=== PATIENT | male | born 1960 | race Caucasian/White ===

== ENCOUNTER 2019-06-07 07:23 | Inpatient (IN) ==
[2019-06-07 08:07] LABS: BASO# 0.01 X1000 (0.0-0.2); BASO% 0.1 % (0.0-0.8); EOS# 0.07 X1000 (0.0-0.7); EOS% 0.6 % (0.0-10.0); HEMATOCRIT 36.2 % (42.0-52.0); HEMOGLOBIN 11.9 g/dL (14.0-18.0); IMM GRAN# 0.25 X1000 (0.0-0.04); IMM GRAN% 2.1 % (0.0-0.5); LYMPH# 0.79 X1000 (1.2-3.4); LYMPH% 6.6 % (20.5-51.1); MCH 32.1 PG (27-31); MCHC 32.9 g/dL (33-37); MCV 97.6 FL (81-99); MONO# 1.64 X1000 (0.11-0.59); MONO% 13.7 % (1.7-9.3); MPV 10.1 FL (7.4-10.4); NEUT# 9.23 X1000 (1.4-6.5); NEUT% 76.9 % (42.2-75.2); PLT 174 X1000 (130-400); RBC 3.71 XMIL (4.7-6.1); RDW 15.3 % (11.5-14.5); WBC 11.99 X1000 (4.8-10.8)
[2019-06-07] MEDS ORDERED: NS 1,000 ML ONE (08:14)
[2019-06-07] MEDS ORDERED: NS 1,000 ML IV ONE ×3 (08:17→08:35)
[2019-06-07 08:19] LABS: INR 0.93; PROTIME 12.9 Seconds (11.0-16.0); PTT 32.4 Seconds (22.3-41.8)
--- NOTE | 2019-06-07 08:28 | Diag Imaging Result Doc PS360 ---
EXAM: CHEST-1 VIEW - 06/07/2019 HISTORY: ams TECHNIQUE: Portable chest one view COMPARISON: 10/28/2018 FINDINGS: Inspiration is somewhat shallow. There is mild subsegmental atelectasis at the left base. The remainder of the lungs appear essentially clear. There is no pleural effusion or pneumothorax identified. Heart size appears normal. IMPRESSION: Somewhat shallow inspiration, with mild left basilar subsegmental atelectasis. No other evidence of acute disease. Electronically signed by Sadiq Loyola 06/07/2019 8:25 AM
[2019-06-07 08:32] LABS: ALBUMIN 2.8 g/dL (3.5-5.0); CALCIUM 9.5 mg/dL (8.8-10.2); CREATININE 4.1 mg/dL (0.7-1.2); POTASSIUM 4.5 mmol/L (3.5-5.1); TOTAL BILIRUBIN 0.4 mg/dL (0.20-1.00); TOTAL PROTEIN 5.9 g/dL (6.3-8.3)
[2019-06-07] MEDS ORDERED: NS 500 ML IV ONE (08:35)
[2019-06-07] MEDS ORDERED: ROCEPHIN 2 GM in NS 50 ML IV ONE (08:36)
--- NOTE | 2019-06-07 08:42 | PROVIDER DOCUMENTATION ---
HPI-Fever - General Chief Complaint: Altered Mental Status Stated Complaint: AMS Time Seen by Provider: 06/07/19 08:14 Source: other (caregiver) Allergies/Adverse Reactions: Patient Allergies Allergy/AdvReac Type Severity Reaction Status Date / Time No Known Allergies Allergy Verified 06/07/19 07:45 Home Medications: Home Medication List Medication Instructions Recorded Confirmed Last Taken Type Divalproex Sodium [Depakote ER] 500 mg PO TID 09/10/14 06/07/19 12/24/14 07:00 History Timolol 0.5% Oph Solution 1 drop BOTH EYES BID 14 Days 09/10/14 06/07/19 12/24/14 07:00 Rx [Timoptic 0.5% Oph Solution] bottle Lorazepam [Ativan] 1 mg PO DAILY 10/31/15 06/07/19 Unknown History Montelukast Sodium [Singulair] 10 mg PO DAILY 10/31/15 06/07/19 Unknown History Polyethylene Glycol 3350 [Miralax] 17 gm PO DAILY 10/31/15 06/07/19 Unknown History Acyclovir 5% Ointment [Zovirax 5 gm TOP DAILY 06/07/19 06/07/19 Unknown History Ointment] Allopurinol 100 mg PO DAILY 06/07/19 06/07/19 Unknown History Cetirizine HCl 10 mg PO DAILY 06/07/19 06/07/19 Unknown History Fluticasone 50 Mcg Nasal [place] 1 spray INTRANASAL DAILY 06/07/19 06/07/19 Unknown History [Flonase] Furosemide 40 mg PO DAILY 06/07/19 06/07/19 Unknown History Gabapentin 100 mg PO TID 06/07/19 06/07/19 Unknown History Linaclotide [Linzess] 290 mcg PO DAILY 06/07/19 06/07/19 Unknown History Linagliptin [Tradjenta] 5 mg PO DAILY 06/07/19 06/07/19 Unknown History Magnesium Oxide 400 mg PO DAILY 06/07/19 06/07/19 Unknown History Naproxen [Naprosyn] 500 mg PO BID 06/07/19 06/07/19 Unknown History Olanzapine 20 mg PO QHS 06/07/19 06/07/19 Unknown History Parsons-3 Fatty Acids/Fish Oil [Fish 1 ea PO DAILY 06/07/19 06/07/19 Unknown History Oil 1,000 mg Capsule] Pioglitazone HCl 15 mg PO QHS 06/07/19 06/07/19 Unknown History Potassium Chloride E.r. [Micro-K] 8 meq PO DAILY 06/07/19 06/07/19 Unknown History - History of Present Illness-Fever Nature of Presenting Problem: Presents to the with complaints of AMS. She states he lives in a [place] [facility] and last night he was moving more slowly than normal. She states that he is normally able to dress himself and take all his medications but this morning he was unable to do so and was acting altered. She states that they took his temp this morning and it was 100.2 She states that when he urinated "he stunk up the whole house". She denies any nausea, vomiting, diarrhea or sick contacts. She state he has never had a UTI before. Patient is sleepin in bed but is arousable. He will not tell me any symptoms. Review of Systems - Adult - REVIEW OF SYSTEMS - ADULT ROS:: h/o of MR Constitutional: reports: see HPI Eyes: reports: see HPI Ears, Nose, Mouth & Throat: reports: see HPI Cardiovascular: reports: see HPI Respiratory: reports: see HPI Gastrointestinal: reports: see HPI Genitourinary: reports: see HPI Musculoskeletal: reports: see HPI Integumentary: reports: see HPI Neurological: reports: see HPI Psychiatric: reports: see HPI Endocrine: reports: see HPI Hematologic/Lymphatic: reports: see HPI Allergic/Immunologic: reports: see HPI All Other Systems: Reviewed and Negative Past History - Adult - PAST MEDICAL HISTORY-ADULT Review of Records: reports: Old Records Reviewed Neurological: reports: other (MR) Endocrine/Immune: reports: Diabetes - IMMUNIZATION STATUS Childhood Immunizations: See Nurse Assessment Flu Vaccine: See Nurse Assessment Physical Exam-General - PHYSICAL EXAM-ADULT Initial Vital Signs Reviewed: Yes - CONSTITUTIONAL General Appearance: other (lying in bed, sleeping, arousable to verbal stimuli) - EYES Eyes: PERRL/EOMI - HEAD, EARS, NOSE, MOUTH & THROAT HENMT: normocephalic/atraumatic, other (dry mucous membranes) - NECK Neck: supple, normal inspection - RESPIRATORY Respiratory: no respiratory distress, no accessory muscle use, decreased breath sounds, crackles (bilateral bases) - CARDIOVASCULAR Cardiovascular: normal peripheral pulses, no murmur, tachycardia - GASTROINTESTINAL (ABDOMEN) Abdominal Exam: normal bowel sounds, non tender, soft - MUSCULOSKELETAL Back Exam: normal inspection Extremity: normal inspection, no pedal edema - SKIN Integumentary: warm/dry, pallor - NEUROLOGIC Neurologic: grossly normal, other (limited due to condition, no gross deficits) Progress - PLAN OF CARE/RESULTS Progress/Plan/Lab Results: Vital Signs - 8 hr 06/07/19 07:27 06/07/19 08:15 06/07/19 09:18 Temperature 97.8 F 98.9 F Pulse Rate 121 H 112 H 106 H Respiratory Rate 22 28 H 22 Blood Pressure 102/69 74/56 96/61 O2 Sat by Pulse Oximetry 92 L 94 L 94 L Laboratory Results - last 24 hr 06/07/19 06/07/19 06/07/19 07:57 07:57 07:57 WBC 11.99 H RBC 3.71 L Hgb 11.9 L Hct 36.2 L MCV 97.6 MCH 32.1 H MCHC 32.9 L RDW Std Deviation 15.3 H Plt Count 174 MPV 10.1 Immature Gran % (Auto) 2.1 H Neut % (Auto) 76.9 H Lymph % (Auto) 6.6 L [place] % (Auto) 13.7 H Eos % (Auto) 0.6 Baso % (Auto) 0.1 Immature Gran # (Auto) 0.25 H Neut # (Auto) 9.23 H Lymph # (Auto) 0.79 L [place] # (Auto) 1.64 H Eos # (Auto) 0.07 Baso # (Auto) 0.01 Segmented Neutrophils 78 H Band Neutrophils 3 H Lymphocytes 8 L Monocytes 11 H PT INR PTT (Actin FS) Sodium 140 Potassium 4.5 Chloride 102 Carbon Dioxide 20 L Anion Gap 18 BUN 73 H Creatinine 4.1 H Estimated GFR/1.73 m2 15 BUN/Creatinine Ratio 18 Glucose 139 H Calculated Osmolality 303 Calcium 9.5 Total Bilirubin 0.40 AST 68 H ALT 40 Alkaline Phosphatase 195 H Creatine Kinase 178 Troponin T High Sens 39 H Total Protein 5.9 L Albumin 2.8 L Globulin 3.0 Albumin/Globulin Ratio 1.0 Plasma Lactate Urine Source Urine Color Urine Turbidity Urine pH Ur Specific [place] Urine Protein Ur Glucose (Stick) Ur Ketones (Stick) Urine Blood Urine Nitrite Urine Bilirubin Urobilinogen Dipstick Urine Leukocytes Urine WBC (Auto) Urine RBC (Auto) U Epithel Cells (Auto) Urine Bacteria (Auto) Urine Crystals Small Round Cells Urine Casts Urine Yeast-like Cells Influenza A (Rapid) Influenza B (Rapid) Group A Strep Rapid 06/07/19 06/07/19 06/07/19 07:57 08:02 08:08 WBC RBC Hgb Hct MCV MCH MCHC RDW Std Deviation Plt Count MPV Immature Gran % (Auto) Neut % (Auto) Lymph % (Auto) [place] % (Auto) Eos % (Auto) Baso % (Auto) Immature Gran # (Auto) Neut # (Auto) Lymph # (Auto) [place] # (Auto) Eos # (Auto) Baso # (Auto) Segmented Neutrophils Band Neutrophils Lymphocytes Monocytes PT 12.9 INR 0.93 PTT (Actin FS) 32.4 Sodium Potassium Chloride Carbon Dioxide Anion Gap BUN Creatinine Estimated GFR/1.73 m2 BUN/Creatinine Ratio Glucose Calculated Osmolality Calcium Total Bilirubin AST ALT Alkaline Phosphatase Creatine Kinase Troponin T High Sens Total Protein Albumin Globulin Albumin/Globulin Ratio Plasma Lactate 1.2 Urine Source CATH Urine Color YELLOW Urine Turbidity HAZY Urine pH 5.5 Ur Specific [place] 1.011 Urine Protein 70 A Ur Glucose (Stick) NEGATIVE Ur Ketones (Stick) NEGATIVE Urine Blood MODERATE A Urine Nitrite NEGATIVE Urine Bilirubin NEGATIVE Urobilinogen Dipstick NORMAL Urine Leukocytes LARGE A Urine WBC (Auto) TNTC A Urine RBC (Auto) <10 U Epithel Cells (Auto) <10 Urine Bacteria (Auto) 4+ Urine Crystals NONE SEEN Small Round Cells NONE SEEN Urine Casts NONE SEEN Urine Yeast-like Cells NONE SEEN Influenza A (Rapid) Influenza B (Rapid) Group A Strep Rapid 06/07/19 06/07/19 08:32 08:41 WBC RBC Hgb Hct MCV MCH MCHC RDW Std Deviation Plt Count MPV Immature Gran % (Auto) Neut % (Auto) Lymph % (Auto) [place] % (Auto) Eos % (Auto) Baso % (Auto) Immature Gran # (Auto) Neut # (Auto) Lymph # (Auto) [place] # (Auto) Eos # (Auto) Baso # (Auto) Segmented Neutrophils Band Neutrophils Lymphocytes Monocytes PT INR PTT (Actin FS) Sodium Potassium Chloride Carbon Dioxide Anion Gap BUN Creatinine Estimated GFR/1.73 m2 BUN/Creatinine Ratio Glucose Calculated Osmolality Calcium Total Bilirubin AST ALT Alkaline Phosphatase Creatine Kinase Troponin T High Sens Total Protein Albumin Globulin Albumin/Globulin Ratio Plasma Lactate Urine Source Urine Color Urine Turbidity Urine pH Ur Specific [place] Urine Protein Ur Glucose (Stick) Ur Ketones (Stick) Urine Blood Urine Nitrite Urine Bilirubin Urobilinogen Dipstick Urine Leukocytes Urine WBC (Auto) Urine RBC (Auto) U Epithel Cells (Auto) Urine Bacteria (Auto) Urine Crystals Small Round Cells Urine Casts Urine Yeast-like Cells Influenza A (Rapid) NEGATIVE Influenza B (Rapid) NEGATIVE Group A Strep Rapid NEGATIVE Orders Category Date Time Status Cardiac Monitoring NOW Care 06/07/19 07:33 Active IV Insertion NOW Care 06/07/19 07:33 Completed NEWS Score >or=5:Order NEWS Bundle S.O. NOW Care 06/07/19 07:33 Active Notify Provider of NEWS Score NOW Care 06/07/19 07:33 Active CHEST-1 VIEW [RAD] Stat Exams 06/07/19 07:[address] HEAD W/O CONTRAST [CT] Stat Exams 06/07/19 08:39 Completed BLOOD CULTURE [BLDCUL] Stat Lab 06/07/19 08:09 Ordered CBC WITH DIFF [HEME] Stat Lab 06/07/19 07:57 Completed CK PROFILE [SP CHEM] Stat Lab 06/07/19 07:57 Completed COMPREHENSIVE METABOLIC PANEL [CHEM] Stat Lab 06/07/19 07:[address] Stat Lab 06/07/19 08:32 Completed LACTATE, PLASMA [CHEM] Lab 06/07/19 08:08 Completed LACTATE, PLASMA [CHEM] Lab 06/07/19 10:45 Uncollected LACTATE, PLASMA [CHEM] Lab 06/07/19 13:45 Uncollected PROTIME WITH INR [COAG] Stat Lab 06/07/19 07:57 Completed PTT [COAG] Stat Lab 06/07/19 07:57 Completed TROPONIN T HIGH SENSITIVITY Stat Lab 06/07/19 07:57 Completed URINALYSIS W/POSS RFLX CULT [URINALYSIS] Stat Lab 06/07/19 08:02 Completed URINE CULTURE [RM] Routine Lab 06/07/19 09:33 Ordered URINE MANUAL MICROSCOPIC [URINALYSIS] Stat Lab 06/07/19 08:02 Completed strep [DIRECT STREP PL] Stat Lab 06/07/19 08:41 Completed 0.9% Sodium Chloride Inj [Ns] 1,000 ml Med 06/07/19 08:14 Discontinued .ROUTE As directed 0.9% Sodium Chloride Inj [Ns] 1,000 ml Med 06/07/19 08:35 Active IV 126 mls/hr 0.9% Sodium Chloride Inj [Ns] 1,000 ml Med 06/07/19 08:17 Discontinued IV 999 mls/hr 0.9% Sodium Chloride Inj [Ns] 1,000 ml Med 06/07/19 08:35 Discontinued IV 999 mls/hr 0.9% Sodium Chloride Inj [Ns] 500 ml Med 06/07/19 08:35 Discontinued IV 999 mls/hr CefTRIAXONE [Rocephin] 2 gm Med 06/07/19 08:36 Discontinued 0.9% Sodium Chloride Inj [Ns] 50 ml IV NOW O2 Per Protocol Stat Oth 06/07/19 07:33 Active Patient with sepsis due to UTI. He has a Cr to 4.1 with a baseline of around 1.6-1.9. He appears to have a UTI. CXR is just showing some atelectasis and CT Head is negtive. Flu and strep are negative. Spoke to Dr Austin ad operations coordinator for hosp. We discussed location of patient admission given that patient has hypotension although he is improving without having completed his fluids yet. He states he will come down to see the patient and further orders to be placed by their team. Accepted for admission. Result Diagrams: 06/07/19 07:57 06/07/19 07:57 - EKG 1 Time of EKG reading by physician:: 08:28 EKG Read and Signed by:: Tamia Paredes EKG Interpretation (*Must complete 3 of following elements*): Abnormal Rate: 108 Rhythm: tachycardia [place]: normal QRS: RBB ST Wave: non-specific ST changes Prior EKG Comparison: unchanged from prior (08/2018) - XRAY 1 XRAY Study: Chest (EXAM: CHEST-1 VIEW - 06/07/2019 HISTORY: ams TECHNIQUE: Portable chest one view COMPARISON: 10/28/2018 FINDINGS: Inspiration is somewhat shallow. There is mild subsegmental atelectasis at the left base. The remainder of the lungs appear essentially clear. There is no pleural effusion or pneumothorax identified. Heart size appears normal. IMPRESSION: Somewhat shallow inspiration, with mild left basilar subsegmental atelectasis. No other evidence of acute disease. Electronically signed by Sadiq Loyola 06/07/2019 8:25 AM) - CT/MRI 1 CT Study: Head (EXAM: CT HEAD W/O CONTRAST - 06/07/2019 HISTORY: AMS TECHNIQUE: CT head without contrast COMPARISON: 10/31/2015 FINDINGS: There is no evidence of intracranial hemorrhage, mass effect, midline shift, or hydr ocephalus. There is no evidence of infarct, although acute infarcts may not be immediately visible. There is no evidence of skull fracture. There is a left mastoid effusion noted. The left middle ear is partially opacified. There is cerumen noted in the right external auditory canal. The visualized paranasal sinuses appear clear. IMPRESSION: No visible acute intracranial abnormality. No hemorrhage or mass effect. Apparent mastoiditis and otitis media on left. This exam was performed using automated exposure control, adjustment of mA or kV according to patient size, and/or use of iterative reconstruction technique. Electronically signed by Sadiq Loyola 06/07/2019 9:03 AM) - CONSULTS/PCP/HOSPITALIST Notification #1 *Consult/PCP/Hospitalist*: Dr Austin Time Discussed: 09:56 Consult Disposition: Will see in ED, Admit Departure - Departure Date of Disposition Decision: 06/07/19 Time of Disposition Decision: 09:58 DIAGNOSIS: BORIS (acute kidney injury), Elevated troponin, Hypotension, Altered mental status, UTI (urinary tract infection), CKD (chronic kidney disease) Disposition: ADMITTED INPATIENT 09 Certified Medical Emergency: Emergent Condition: Critical Referrals and Follow-Ups: Adrian Fiore MD [Primary Care Provider] - - Critical Care Note This patient required my direct & personal management of CC.: Yes Total Time (mins): 35 Critical Care Statement: This patient required my direct personal management to treat or rule out processes, the absence of which, could potentiallly result in sudden, clinically significant life or limb threatening deterioration. Attestation - Physician/ TRUDY Attestation Patient care was provided by Advanced Practice Provider:: No The physician spent face to face time with patient:: Yes Advanced Practice Provider documentation review:: Supervising physician onsite and consulted in the evaluation and care of this patient. The physician did have a face to face encounter with the patient.
[2019-06-07 08:46] LABS: BILIRUBIN URINE NEGATIVE (NEGATIVE); BLOOD URINE MODERATE (NEGATIVE); COLOR YELLOW; GLUCOSE URINE NEGATIVE (NEGATIVE); KETONE URINE NEGATIVE (NEGATIVE); LEUKOCYTES URINE LARGE (NEGATIVE); NITRITE URINE NEGATIVE (NEGATIVE); PH URINE 5.5; PROTEIN URINE 70 mg/dL (NEGATIVE); SP GRAVITY URINE 1.011; TURBIDITY URINE HAZY (CLEAR); UROBILINOGEN URINE NORMAL (NORMAL)
[2019-06-07 09:02] LABS: INFLUENZA A NEGATIVE (NEGATIVE); INFLUENZA B NEGATIVE (NEGATIVE)
--- NOTE | 2019-06-07 09:05 | Diag Imaging Result Doc PS360 ---
EXAM: CT HEAD W/O CONTRAST - 06/07/2019 HISTORY: AMS TECHNIQUE: CT head without contrast COMPARISON: 10/31/2015 FINDINGS: There is no evidence of intracranial hemorrhage, mass effect, midline shift, or hydrocephalus. There is no evidence of infarct, although acute infarcts may not be immediately visible. There is no evidence of skull fracture. There is a left mastoid effusion noted. The left middle ear is partially opacified. There is cerumen noted in the right external auditory canal. The visualized paranasal sinuses appear clear. IMPRESSION: No visible acute intracranial abnormality. No hemorrhage or mass effect. Apparent mastoiditis and otitis media on left. This exam was performed using automated exposure control, adjustment of mA or kV according to patient size, and/or use of iterative reconstruction technique. Electronically signed by Sadiq Loyola 06/07/2019 9:03 AM
[2019-06-07 09:23] LABS: BANDS 3 % (0-1); LYMPHS 8 % (21-51); MONO 11 % (1-9); SEGS 78 % (42-75)
[2019-06-07 09:33] LABS: UR EPITHELIAL CELLS <10 /HPF (<10); URINE BACTERIA 4+ /HPF; URINE CASTS NONE SEEN; URINE CRYSTALS NONE SEEN; URINE RBC <10 /HPF (<10); URINE SMALL ROUND CELLS NONE SEEN; URINE WBC TNTC /HPF (<10); URINE YEAST NONE SEEN
[2019-06-07 09:34] LABS: URINE SOURCE CATH
[2019-06-07 11:50] LABS: ALBUMIN 2.5 g/dL (3.5-5.0); CREATININE 3.8 mg/dL (0.7-1.2); PHOSPHORUS 2.5 mg/dL (2.7-4.5); POTASSIUM 4.4 mmol/L (3.5-5.1)
--- NOTE | 2019-06-07 12:20 | EKG Report ---
Test Performed on : 06/07/2019 08:28:42 AM Test Reason : ER Blood Pressure : / mmHG Vent. Rate : 108 BPM Atrial Rate : 108 BPM P-R Int : 166 ms QRS Dur : 118 ms QT Int : 336 ms P-R-T Axes : 049 079 -01 degrees QTc Int : 450 ms Sinus tachycardia. Low voltage QRS Incomplete right bundle branch block T wave abnormality, consider inferior ischemia Abnormal ECG When compared with ECG of 05-AUG-2018 15:38, T wave inversion now evident in Inferior leads Nonspecific T wave abnormality now evident in Anterior leads Unconfirmed Result
[2019-06-07] MEDS ORDERED: DEPAKOTE ER PO SCH (15:00)
[2019-06-07] MEDS: NS 1,000 ML IV SCH (15:10)
[2019-06-07] MEDS: ATIVAN PO SCH (15:20)
[2019-06-07] MEDS: HUMALOG (PARKWAY) SUBQ SCH ×2 (17:12→20:51)
[2019-06-07] MEDS ORDERED: ZOSYN ONE (17:20)
[2019-06-07] MEDS: ZOSYN 2.25 GM in NS 50 ML IV SCH ×2 (17:24→20:57)
--- NOTE | 2019-06-07 17:40 | HISTORY AND PHYSICAL ---
CHIEF COMPLAINT: Weakness, altered mental status and foul smelling urine. HISTORY OF PRESENT ILLNESS: This is a 58-year-old gentleman with a history of mental retardation, who presents to the emergency room via with his [facility] personnel who state that the patient had been in his normal state of health until yesterday afternoon where they noticed that he was just moving slower than normal. This morning he was unable to dresses himself. They stated that he required assistance, which is unusual. He normally walks with a walker. He had difficulty holding on to the walker and holding his balance today. At breakfast he was unable to feed himself but when fed he ate his full meal. They reported a temperature of 100.2 degrees. They stated that when he urinated, "he stunk up the whole house." They do not remember him ever having a UTI in the past, nor foul smelling urine as this morning. PAST MEDICAL HISTORY: 1. Mental retardation. 2. Diabetes mellitus. 3. Chronic kidney disease with a baseline creatinine of 1.6 to 1.8 and baseline GFR ranging from 39 to 57. 4. Glaucoma. 5. Chronic constipation. PAST SURGICAL HISTORY: Unsure. SOCIAL HISTORY: He lives in [facility]. He smokes half a pack of cigarettes a day. [facility] personnel deny any illicit drug use. ALLERGIES: No known drug allergies. HOME MEDICATIONS: A list will be obtained from the [facility] list and once verified review restart as appropriate. REVIEW OF SYSTEMS: Unable to obtain from the patient. Pertinent positives for the [facility] personnel are stated in the HPI. FAMILY HISTORY: Unable to obtain at present. PHYSICAL EXAMINATION: GENERAL: This is a 58-year-old gentleman who is lying on the stretcher in the emergency room in no distress. VITAL SIGNS: Blood pressure is 101/76 with a heart rate of 101, respirations are 18 to 20, temperature is 98.1 degrees with room air saturations are 94%. EYES: Pupils are equal, round, react to light. EOMs are intact. Sclerae anicteric. HEENT: Head is normocephalic, atraumatic. Mucous membranes are dry. NECK: Supple with trachea midline. CARDIOVASCULAR: Regular rate and rhythm. He is tachycardic. S1 and S2 appreciated. No murmur. Peripheral pulses are palpable x4 extremities. PULMONARY: Breath sounds are diminished throughout. Chest rises and falls symmetric with respiration. Chest wall is nontender to palpation. GASTROINTESTINAL: Abdomen is soft, nontender, nondistended. Bowel sounds in all 4 quadrants. NEUROLOGIC: He is alert. He has oriented to himself. He is able to state his caregiver's name. He intermittently follows simple commands such as raising his arm, moving his foot. LABS: WBC is 11.9 with hemoglobin 11.9, hematocrit 36.2, platelets 174,000. Sodium was 140, potassium 4.5, BUN 73, creatinine 4.1, with a glucose of 139. AST 68. Troponin was 39. Urinalysis reveals moderate blood with large leukocytes, too numerous to count white blood cells and 4+ bacteria. This is a catheterized specimen. Influenza A and B are negative. Group A strep is negative. Throat culture, blood cultures and urine cultures are pending. Chest x-ray revealed somewhat shallow inspiration with mild left basilar subsegmental atelectasis. No other evidence of acute disease. CT of the head revealed no visible acute intracranial abnormality, no hemorrhage or mass effect. Mastoiditis and otitis media on the left. ASSESSMENT: 1.Metabolic encephalopathy 2nd to UTI 2. Sepsis d/t UTI 3. Hypotension secondary to intravascular volume depletion. 4. Intravascular volume depletion/dehydration. 5. Urinary tract infection. 6. Acute kidney injury overlying chronic kidney disease. 7. Diabetes mellitus type 2. 8. Mental retardation. 9. Chronic constipation. 10. Mastoiditis and otitis media on the left. PLAN: 1. Patient has been admitted to the medical-surgical floor. 2. pattern blood glucose with sliding scale insulin. 3. Hold all renal toxic medications. Renal dose medications as appropriate. 4. continue IV hydration. 5. Review home medications and continue as appropriate. 6. Continue antibiotic coverage of Rocephin. Further antibiotics will be culture driven. 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 renal profile stat now to assess his renal function after receiving hydration in the emergency room. Plan was discussed with Dr. Austin. Further treatments pending hospital course. Dictated by AMAURY Pinon for Kelechi Austin MD cc: AMAURY Pinon MD [facility]
[2019-06-07] MEDS: ZYPREXA PO SCH (20:50)
[2019-06-07] MEDS: DEPAKOTE ER PO SCH (20:50)
[2019-06-07] MEDS: TIMOPTIC 0.5% OPH SOLUTION BOTH EYES SCH (20:50)
--- NOTE | 2019-06-07 21:53 | HISTORY AND PHYSICAL ---
ADDENDUM: Patient seen and examined by myself. Full note dictated and discussed with nurse practitioner. Patient presented to the hospital with his caregivers noting that he is normally able to dress himself, but this morning he has a low-grade fever and he has been exceptionally weak. Creatinine is elevated at 4.1. We are going to admit to the hospital. IV fluids. Certainly appears to be volume depleted and will follow. cc: Kelechi Austin MD
[2019-06-08] MEDS: NS 1,000 ML IV SCH (01:14)
[2019-06-08] MEDS ORDERED: LASIX IV ONE (03:45)
[2019-06-08] MEDS: ZOSYN 2.25 GM in NS 50 ML IV SCH ×4 (03:53→21:47)
[2019-06-08] MEDS: LINZESS PO SCH (06:19)
[2019-06-08] MEDS: HUMALOG (PARKWAY) SUBQ SCH ×4 (06:19→21:47)
[2019-06-08 06:33] LABS: BASO# 0.03 X1000 (0.0-0.2); BASO% 0.2 % (0.0-0.8); EOS# 0.12 X1000 (0.0-0.7); EOS% 0.7 % (0.0-10.0); HEMATOCRIT 35.9 % (42.0-52.0); HEMOGLOBIN 11.7 g/dL (14.0-18.0); IMM GRAN# 0.24 X1000 (0.0-0.04); IMM GRAN% 1.3 % (0.0-0.5); LYMPH# 1.09 X1000 (1.2-3.4); MCH 32.1 PG (27-31); MCHC 32.6 g/dL (33-37); MCV 98.4 FL (81-99); MONO# 4.04 X1000 (0.11-0.59); MONO% 22.2 % (1.7-9.3); MPV 10.4 FL (7.4-10.4); NEUT# 12.67 X1000 (1.4-6.5); NEUT% 69.6 % (42.2-75.2); PLT 161 X1000 (130-400); RBC 3.65 XMIL (4.7-6.1); RDW 16.2 % (11.5-14.5); WBC 18.19 X1000 (4.8-10.8)
[2019-06-08 06:53] LABS: ALBUMIN 2.5 g/dL (3.5-5.0); CALCIUM 10.1 mg/dL (8.8-10.2); CREATININE 3.6 mg/dL (0.7-1.2); PHOSPHORUS 4.2 mg/dL (2.7-4.5); POTASSIUM 4.5 mmol/L (3.5-5.1)
--- NOTE | 2019-06-08 08:06 | Diag Imaging Result Doc PS360 ---
EXAM: CHEST-PORTABLE 06/08/2019 HISTORY: increased dyspnea TECHNIQUE: Erect AP portable at 0716 COMMENT: There is ill-defined opacity in the left lower lobe. This was not clearly present on 06/07/2019. There our bone infarcts in both humeral heads. The inspiration is suboptimal. IMPRESSION: Questionable atelectasis or pneumonia left lower lobe. Electronically signed by Roshan Caldwell 06/08/2019 8:04 AM
[2019-06-08] MEDS ORDERED: ZOVIRAX OINTMENT TOP SCH (09:00)
[2019-06-08] MEDS ORDERED: ROCEPHIN 1 GM in NS 50 ML IV SCH (09:00)
[2019-06-08 09:32] LABS: BANDS 10 % (0-1); LYMPHS 4 % (21-51); MONO 22 % (1-9); SEGS 64 % (42-75)
[2019-06-08] MEDS: ZYRTEC PO SCH (10:44)
[2019-06-08] MEDS: TIMOPTIC 0.5% OPH SOLUTION BOTH EYES SCH ×2 (10:44→21:41)
[2019-06-08] MEDS: SINGULAIR PO SCH (10:44)
[2019-06-08] MEDS: MIRALAX PO SCH (10:44)
[2019-06-08] MEDS: MAG-OX PO SCH (10:45)
[2019-06-08] MEDS: ATIVAN PO SCH (10:45)
[2019-06-08] MEDS: DEPAKOTE ER PO SCH ×2 (10:45→21:41)
[2019-06-08] MEDS: ZYPREXA PO SCH (21:41)
--- NOTE | 2019-06-08 23:50 | PROGRESS NOTE ---
DATE: 06/08/2019 SUBJECTIVE: The patient is still confused and disoriented. OBJECTIVE: Temperature 95, pulse 99, respiratory rate 18, BP 131/74, O2 saturation is 98% on 3 L.General: The patient is pleasant, in no current distress. HEENT: Normocephalic. Neck: Supple. Cardiovascular: Regular rate. Chest: Clear. Abdomen: Soft. Extremities: Moves all extremities. ASSESSMENT: 1. Urinary tract infection growing gram-negative rods. 2. Leukocytosis, white count is elevated from 11 to 18. 3. Acute renal failure, creatinine is still elevated at 3.6. 4. Pulmonary edema. 5. Mental retardation. 6. Chronic constipation. PLAN: We will continue the patient in the hospital. We had stop his IV fluids secondary to pulmonary edema. Continue fluids as tolerated. We will follow. cc: Kelechi Austin MD
[2019-06-09] MEDS: ZOSYN 2.25 GM in NS 50 ML IV SCH (04:11)
[2019-06-09] MEDS: HUMALOG (PARKWAY) SUBQ SCH ×4 (06:51→21:27)
[2019-06-09] MEDS: LINZESS PO SCH (06:53)
[2019-06-09] MEDS ORDERED: CALMOSEPTINE OINTMENT TOP PRN (06:53)
[2019-06-09 07:22] LABS: HEMATOCRIT 35.3 % (42.0-52.0); HEMOGLOBIN 11.9 g/dL (14.0-18.0); MCH 32.4 PG (27-31); MCHC 33.7 g/dL (33-37); MCV 96.2 FL (81-99); MPV 10.7 FL (7.4-10.4); RBC 3.67 XMIL (4.7-6.1); RDW 16.2 % (11.5-14.5); WBC 11.79 X1000 (4.8-10.8)
[2019-06-09 07:27] LABS: ALBUMIN 2.4 g/dL (3.5-5.0); CALCIUM 10.3 mg/dL (8.8-10.2); CREATININE 3.4 mg/dL (0.7-1.2); MAGNESIUM 2.1 mg/dL (1.5-2.7); POTASSIUM 4.4 mmol/L (3.5-5.1); TOTAL BILIRUBIN 0.6 mg/dL (0.20-1.00); TOTAL PROTEIN 6.5 g/dL (6.3-8.3)
[2019-06-09] MEDS ORDERED: LEVAQUIN 500 MG/D5W 500 MG/100 ML IVPB IV SCH (09:00)
[2019-06-09] MEDS: SINGULAIR PO SCH (09:55)
[2019-06-09] MEDS: ATIVAN PO SCH (09:55)
[2019-06-09] MEDS: MIRALAX PO SCH (09:55)
[2019-06-09] MEDS: ZYRTEC PO SCH (09:55)
[2019-06-09] MEDS: DEPAKOTE ER PO SCH ×2 (09:55→21:25)
[2019-06-09] MEDS: MAG-OX PO SCH (09:55)
[2019-06-09] MEDS: TIMOPTIC 0.5% OPH SOLUTION BOTH EYES SCH ×2 (09:56→21:15)
[2019-06-09] MEDS: ROCEPHIN 1 GM in NS 50 ML IV SCH (12:33)
--- NOTE | 2019-06-09 13:01 | Diag Imaging Result Doc PS360 ---
EXAM: US RENAL 2 (RETROPER) COMPLETE 06/09/2019 HISTORY: ARF/UTI TECHNIQUE: Renal ultrasound COMMENT: The urinary bladder is unremarkable. The kidneys are without evidence of hydronephrosis or mass. The detail is somewhat suboptimal due to the patient's body habitus. The right kidney is 9.7 x 5.1 x 5.2 cm the left is 10.3 x 5.4 x 5.6 cm. IMPRESSION: No evidence of obstructive uropathy. Electronically signed by Roshan Caldwell 06/09/2019 12:59 PM
[2019-06-09 16:29] LABS: UR PROT RANDOM 16.3 mg/dL
[2019-06-09] MEDS: ZYPREXA PO SCH (21:25)
--- NOTE | 2019-06-09 21:31 | PROGRESS NOTE ---
DATE: 06/09/2019 SUBJECTIVE: The patient, himself, is still confused, although he is more awake and alert, sitting up in the bed. PHYSICAL EXAM: Vital signs: Temperature 97, pulse 89, respiratory rate 18, BP 112/64. General: Patient is awake, pleasant. He is in no current respiratory distress. HEENT: Normocephalic. Neck: Supple. Cardiovascular: Regular rate. Chest: Clear, nonlabored. Abdomen: Soft, nondistended. Extremities: Moves all extremities. ASSESSMENT: 1. Gram-negative allegra urinary tract infection, Escherichia coli. 2. Acute metabolic encephalopathy secondary to Escherichia coli urinary tract infection. 3. Hypertension secondary to Escherichia coli urinary tract infection. 4. Sepsis secondary to Escherichia coli urinary tract infection. 5. Elevated troponin. 6. Diabetes. 7. Acute renal failure. 8. Leukocytosis. PLAN: We will continue IV antibiotics. Recheck creatinine. We will check an ultrasound of his kidneys. I had difficulty giving him fluids earlier as he has started becoming fluid overloaded, so we had to stop. We will continue to follow. cc: Kelechi Austin MD
[2019-06-10] MEDS ORDERED: TYLENOL PO PRN (04:29)
[2019-06-10 04:46] LABS: ALBUMIN 2.6 g/dL (3.5-5.0); CALCIUM 10.6 mg/dL (8.8-10.2); CREATININE 2.6 mg/dL (0.7-1.2); PHOSPHORUS 3.3 mg/dL (2.7-4.5); POTASSIUM 5.1 mmol/L (3.5-5.1)
[2019-06-10] MEDS: LINZESS PO SCH ×2 (05:07→06:16)
[2019-06-10] MEDS: HUMALOG (PARKWAY) SUBQ SCH ×4 (06:15→22:01)
[2019-06-10] MEDS ORDERED: NS 1,000 ML IV SCH (07:15)
[2019-06-10] MEDS: MAG-OX PO SCH (10:27)
[2019-06-10] MEDS: ZYRTEC PO SCH (10:27)
[2019-06-10] MEDS: SINGULAIR PO SCH (10:27)
[2019-06-10] MEDS: ATIVAN PO SCH (10:27)
[2019-06-10] MEDS: DEPAKOTE ER PO SCH ×2 (10:27→22:00)
[2019-06-10] MEDS: MIRALAX PO SCH (10:29)
[2019-06-10] MEDS: TIMOPTIC 0.5% OPH SOLUTION BOTH EYES SCH ×2 (10:35→22:00)
[2019-06-10] MEDS: ROCEPHIN 1 GM in NS 50 ML IV SCH (12:52)
[2019-06-10] MEDS: ZYPREXA PO SCH (22:00)
--- NOTE | 2019-06-11 00:36 | PROGRESS NOTE ---
DATE: 06/10/2019 SUBJECTIVE: Patient with no complaints. The sitter notes that he is not quite back to his baseline, still confused and had been ambulating with assistance prior to coming in although currently cannot ambulate with assistance. PHYSICAL EXAMINATION: Vital Signs: Temperature 98 degrees, pulse 83, respiratory rate 18, BP 157/82. General: Patient is pleasant, currently in no distress lying in the bed. HEENT: Normocephalic. Neck: Supple. Cardiovascular: Regular rate. Chest: Clear. Abdomen: Soft. Extremities: Moves all extremities. ASSESSMENT: 1. Gram-negative allegra urinary tract infection. 2. Acute metabolic encephalopathy secondary to urinary tract infection. 3. Hypotension and sepsis secondary to urinary tract infection, resolved. 4. Intravascular depletion. 5. Acute kidney injury, continues to improve. Creatinine 3.6 on admit, currently improved although not quite back to his baseline with a normal renal ultrasound. 6. Leukocytosis. PLAN: We are going to continue patient in the hospital. Get Physical Therapy involved. Continue antibiotics. Further orders as needed. cc: Kelechi Austin MD
[2019-06-11] MEDS: HUMALOG (PARKWAY) SUBQ SCH ×4 (06:31→21:25)
[2019-06-11 06:32] LABS: ALBUMIN 2.6 g/dL (3.5-5.0); CALCIUM 10.4 mg/dL (8.8-10.2); CREATININE 2.2 mg/dL (0.7-1.2); PHOSPHORUS 3.5 mg/dL (2.7-4.5); POTASSIUM 5.2 mmol/L (3.5-5.1)
[2019-06-11] MEDS: LINZESS PO SCH (06:33)
[2019-06-11] MEDS ORDERED: D5 1/2 NS 1,000 ML IV SCH (08:00)
[2019-06-11] MEDS: MAG-OX PO SCH (09:30)
[2019-06-11] MEDS: DEPAKOTE ER PO SCH ×2 (09:30→20:05)
[2019-06-11] MEDS: MIRALAX PO SCH (09:30)
[2019-06-11] MEDS: ATIVAN PO SCH (09:31)
[2019-06-11] MEDS: ZYRTEC PO SCH (09:31)
[2019-06-11] MEDS: TIMOPTIC 0.5% OPH SOLUTION BOTH EYES SCH ×2 (09:31→20:11)
[2019-06-11] MEDS: SINGULAIR PO SCH (09:31)
[2019-06-11] MEDS: ROCEPHIN 1 GM in NS 50 ML IV SCH (11:09)
--- NOTE | 2019-06-11 13:44 | PROGRESS NOTE ---
DATE: 06/11/2019 SUBJECTIVE: Patient is much more alert, much more back to himself today. He actually smiles when spoken. To the sitter notes that he is starting to eat and drink a little bit better although not back to his baseline. PHYSICAL EXAMINATION: Vital Signs: Temperature 98, pulse 83, respiratory rate 18, BP 137/82. General: Patient is pleasant. No distress. HEENT: Normocephalic. Neck: Supple. Cardiovascular: Regular rate. Chest: Clear, nonlabored. Abdomen: Soft. Extremities: Moves all extremities. ASSESSMENT: 1. Hypernatremia. Sodium is elevated at 152. 2. Hyperkalemia. Potassium elevated. Acute on chronic renal failure. Creatinine is actually improved down to 2.2 from original 3.6. 3. Hyperglycemia. Change his fluids to D5 half-normal, will recheck in the a.m. Renal ultrasound is normal. He does have a urinary tract infection. Continue on antibiotics. Further orders as needed. Hopefully home over the next 1 or 2 days. cc: Kelcehi Austin MD
[2019-06-11] MEDS: ZYPREXA PO SCH (20:04)
[2019-06-12] MEDS: HUMALOG (PARKWAY) SUBQ SCH ×4 (06:14→21:01)
[2019-06-12] MEDS: LINZESS PO SCH (06:16)
[2019-06-12 06:22] LABS: HEMATOCRIT 38.5 % (42.0-52.0); HEMOGLOBIN 12.7 g/dL (14.0-18.0); MCH 31.7 PG (27-31); MPV 10.2 FL (7.4-10.4); RBC 4.01 XMIL (4.7-6.1); RDW 17.3 % (11.5-14.5); WBC 10.53 X1000 (4.8-10.8)
[2019-06-12 06:54] LABS: ALBUMIN 2.9 g/dL (3.5-5.0); CALCIUM 10.5 mg/dL (8.8-10.2); CREATININE 1.9 mg/dL (0.7-1.2); PHOSPHORUS 3.1 mg/dL (2.7-4.5); POTASSIUM 5.6 mmol/L (3.5-5.1)
[2019-06-12] MEDS: DEPAKOTE ER PO SCH ×2 (11:55→21:01)
[2019-06-12] MEDS: MAG-OX PO SCH (11:56)
[2019-06-12] MEDS: ATIVAN PO SCH (11:56)
[2019-06-12] MEDS: SINGULAIR PO SCH (11:56)
[2019-06-12] MEDS: ZYRTEC PO SCH (11:56)
[2019-06-12] MEDS: ROCEPHIN 1 GM in NS 50 ML IV SCH (12:11)
[2019-06-12] MEDS: MIRALAX PO SCH (12:11)
[2019-06-12] MEDS: TIMOPTIC 0.5% OPH SOLUTION BOTH EYES SCH ×2 (13:40→21:08)
--- NOTE | 2019-06-12 20:53 | PROGRESS NOTE ---
DATE: 06/12/2019 SUBJECTIVE: Patient has no complaints. Sitter notes that he is pretty close back to his baseline. PHYSICAL EXAM: Temperature 98 degrees, pulse 83, respiratory rate 18, BP 137/82.General: Patient is pleasant. He is currently sleeping. He is in no distress. HEENT: Normocephalic. Neck: Supple. Cardiovascular: Regular rate. Chest: Clear. Nonlabored. No wheezing currently. Abdomen: Soft. Extremities: Moves all extremities. ASSESSMENT: 1. Escherichia coli urinary tract infection currently on Rocephin, which is highly sensitive, resistant to penicillin. 2. Hypotension, resolved. 3. Hypernatremia. 4. Hyperkalemia. 5. Acute on chronic renal failure. Creatinine 3.6 on admit, currently 1.9, which is fairly close to his baseline. PLAN: We are going to continue patient in the hospital. Continue antibiotics for his Escherichia coli. We will increase his fluid limit and we will follow. We did discuss with Dr. Mendez regarding his fluid restrictions. cc: Kelechi Austin MD
[2019-06-12] MEDS: ZYPREXA PO SCH (21:01)
[2019-06-13 05:20] VITALS: BP 126/72
[2019-06-13] MEDS: LINZESS PO SCH (06:09)
[2019-06-13] MEDS: HUMALOG (PARKWAY) SUBQ SCH ×2 (06:35→12:25)
[2019-06-13 07:55] LABS: HEMATOCRIT 40.1 % (42.0-52.0); HEMOGLOBIN 12.9 g/dL (14.0-18.0); MCH 31.2 PG (27-31); MCHC 32.2 g/dL (33-37); MCV 97.1 FL (81-99); MPV 9.8 FL (7.4-10.4); RBC 4.13 XMIL (4.7-6.1); RDW 16.9 % (11.5-14.5); WBC 13.66 X1000 (4.8-10.8)
[2019-06-13 08:16] LABS: ALBUMIN 3.1 g/dL (3.5-5.0); CALCIUM 10.5 mg/dL (8.8-10.2); CREATININE 1.7 mg/dL (0.7-1.2); POTASSIUM 5.5 mmol/L (3.5-5.1); TOTAL BILIRUBIN 0.4 mg/dL (0.20-1.00); TOTAL PROTEIN 7.4 g/dL (6.3-8.3)
[2019-06-13] MEDS: ATIVAN PO SCH (09:16)
[2019-06-13] MEDS: DEPAKOTE ER PO SCH (09:16)
[2019-06-13] MEDS: SINGULAIR PO SCH (09:16)
[2019-06-13] MEDS: MIRALAX PO SCH (09:16)
[2019-06-13] MEDS: MAG-OX PO SCH (09:17)
[2019-06-13] MEDS: ZYRTEC PO SCH (09:17)
[2019-06-13] MEDS: TIMOPTIC 0.5% OPH SOLUTION BOTH EYES SCH (10:09)
[2019-06-13] MEDS: ROCEPHIN 1 GM in NS 50 ML IV SCH ×2 (12:25→12:32)
[2019-06-13] MEDS ORDERED: FLU VACCINE IM ONE (12:26)
[2019-06-13] MEDS ORDERED: PNEUMOVAX 23 IM ONE (12:26)
--- NOTE | 2019-06-13 13:38 | DISCHARGE SUMMARY ---
ADMISSION DATE: 06/07/2019 DISCHARGE DATE: 06/13/2019 ADMISSION DIAGNOSES: 1. Metabolic encephalopathy secondary to urinary tract infection. 2. Sepsis due to urinary tract infection. 3. Hypotension secondary to intravascular volume depletion and sepsis. 4. Intravascular volume depletion, dehydration. 5. Urinary tract infection. 6. Acute kidney injury overlying chronic kidney disease. 7. Diabetes mellitus type 2. 8. Mental retardation. 9. Chronic constipation. 10. Mastoiditis and otitis media on the left. DISCHARGE DIAGNOSES: 1. Escherichia coli urinary tract infection, currently on Rocephin, highly sensitive but resistant to penicillin. 2. Hypotension resolved. 3. Hypernatremia. 4. Hyperkalemia. 5. Acute on kidney chronic kidney disease. CONSULTATIONS: Dr. Mendez via phone. SURGERIES/PROCEDURES: None. HOSPITAL COURSE: Mr. Ricky Fletcher is a 58-year-old male with a history of mental retardation, presented to the emergency department with weakness and foul smelling urine along with worsening altered mental status. He was found to have urinary tract infection. Also, also had some mastoiditis and otitis media on the left and acute kidney injury on CKD. His nephrotoxic medications were held. He was given IV fluid hydration. Kidney function returned to baseline. Escherichia coli was grown in the urine, highly sensitive, was on Rocephin for that. He will be changed over to Omnicef at home. His altered mental status improved and is stable and will be [facility]. During this time, he has had sitters. DISCHARGE VITAL SIGNS: Temperature 97.9 degrees, heart rate 81, respiratory rate 18, blood pressure 126/72, O2 saturation 98% on room air. DISCHARGE LAB DATA: White blood cells 13,000, hemoglobin 12, hematocrit 40, platelet count 167,000. Sodium 149, potassium 5.5, BUN 49, creatinine is 1.7, glucose 169, calcium 10.5, bilirubin 0.40, AST 19, ALT 23, albumin 3.1. Urine culture grew out Escherichia coli, ESBL negative, resistant to ampicillin, sulbactam, and cefazolin. IMAGING: On 06/07/2019, chest x-ray somewhat shallow inspiration with mild left basilar subsegmental atelectasis, but no acute disease. Head CT: Mastoiditis and otitis media on the left but no other acute findings. On 06/08/2019. Chest x-ray, questionable atelectasis or pneumonia left lower lobe. Renal ultrasound on 06/08 was no evidence of acute obstructive uropathy. 0On 06/06/2019. EKG sinus tachycardia rate 108, QTc was 450. DISCHARGE MEDICATIONS: 1. We will do Omnicef 300 mg p.o. twice a day for 7 days. 2. Olanzapine 20 mg p.o. nightly. 3. Pioglitazone 15 mg p.o. nightly. 4. Allopurinol 100 mg p.o. daily. 5. Ativan 1 mg p.o. daily. 6. Cetirizine 10 mg p.o. daily. 7. Depakote extended-release 500 mg p.o. twice daily. 8. Lindsay-3 fish oil once daily. 9. Flonase once daily. 10. Lasix 40 mg p.o. daily. 11. Neurontin 100 mg p.o. t.i.d. 12. Linzess 290 mcg p.o. daily. 13. Magnesium oxide 400 mg p.o. daily. 14. MiraLAX 17 g p.o. daily. 15. Singulair 10 mg p.o. daily. 16. Tradjenta 5 mg p.o. daily. 17. Acyclovir topical daily. 18. Calmoseptine ointment topical p.r.n. 19. Timolol both eyes believed that it has been stopped back in 2014. 20. Tylenol 650 p.o. q.4 hours p.r.n. PHYSICIAN FOLLOWUPS: In 2 weeks and follow up with Dr. Mendez to have some labs redrawn and then he also needs to follow up with Dr. Fiore, his primary. DISCHARGE ACTIVITY: As tolerated. DISCHARGE DIET: Diabetic. DISCHARGE INSTRUCTIONS: If your condition changes, contact physician and/or return to the emergency department. Changes may include, but not limited to shortness of breath, increased fatigue, excessive bleeding, unexplained weight loss or gain, unmanageable pain, signs or symptoms of infection. Please follow up with all physicians as ordered. Take prescription antibiotics as prescribed. DISCHARGE DISPOSITION: Back to his [facility]. Dictated by AMAURY Shannon for Kelechi Austin MD cc: AMAURY Shannon MD
--- NOTE | 2019-06-13 23:34 | DISCHARGE SUMMARY ---
ADMISSION DATE: 06/07/2019 DISCHARGE DATE: 06/13/2019 Patient seen and examined by myself. Full note dictated and discussed with nurse practitioner. Patient presented to the hospital with acute mental status changes. He was placed on antibiotics. Subsequently diagnosed with an Escherichia coli urinary tract infection. Continued to improve. He did have some difficulties with hypernatremia and hyperkalemia. He was initially admitted with acute renal failure with creatinine 3.6 and was discharged at 1.9. Sodium and potassium both were improving. We did decrease his fluid restriction and increase the amount of fluids that he was allowed to have. On discharge, he is awake, alert, in no distress. He will follow up outpatient with Dr. Mendez. cc: Kelechi Austin MD
== END 2019-06-13 13:23 | disposition home or self-care (01) | DRG 871 ==
LOC: P.ED 07:23 → P.MEDSURG 12:26
PROVIDERS: ATTEND Family Medicine